=== PATIENT | female | born 1965 | race Caucasian/White ===

== ENCOUNTER 2020-12-15 10:01 | Emergency (ER) | payer SELFPAY ==
[2020-12-15] MEDS ORDERED: NA CHLORIDE 0.9% 1,000 ML ONE (11:14)
[2020-12-15] MEDS ORDERED: MORPHINE 4 MG/ML SYR ONE ×2 (11:14→12:21)
[2020-12-15] MEDS ORDERED: PROMETHAZINE INJ 25 MG/ML AMP ONE ×3 (11:15→12:21)
[2020-12-15 11:16] LABS: Urine Blood NEGATIVE (NEG); Urine Glucose NEGATIVE (NEG); Urine Protein NEGATIVE (NEG); Urine pH 7.5 (5.0-7.0)
[2020-12-15 11:29] LABS: ALT/SGPT 19 U/L (12-78); AST/SGOT 18 U/L (15-37); Albumin 3.9 g/dL (3.4-5.0); Alkaline Phosphatase 78 U/L (45-117); BUN Blood Urea Nitrogen 11 mg/dL (7-18); Bicarbonate 28 mmol/L (21-32); Bilirubin Direct < 0.1 mg/dL (0-0.2); Bilirubin Total 0.2 mg/dL (0.2-1.0); Glucose Level 133 mg/dL (74-106); Lipase 107 U/L (73-393); Potassium 3.8 mmol/L (3.5-5.1); Protein, Total 7.1 g/dL (6.4-8.2); Sodium Level 144 mmol/L (136-145)
[2020-12-15 11:31] LABS: Absolute Lymphocytes (CBC) 1.1 K/uL (0.7-4.9); Basophils % 0.3 % (0-1.3); Hematocrit 40.4 % (36.0-45.0); Lymphocytes % 10.9 % (15.3-44.8); MPV 8.2 fL (7.6-11.3); RBC Red Blood Cell Count 4.05 M/uL (3.86-4.86)
--- NOTE | 2020-12-15 11:35 | RAD REPORT ---
EXAM DESCRIPTION: CTAbdomen Pelvis W Contrast - 12/15/2020 11:14 am CLINICAL HISTORY: Abdominal pain. dysuria;Flank pain COMPARISON: No comparisons TECHNIQUE: Biphasic CT imaging of the abdomen and pelvis was performed with 100 ml non-ionic IV cont rast. All CT scans are performed using dose optimization technique as appropriate and may include automated exposure control or mA/KV adjustment according to patient size. FINDINGS: The lung bases are clear. The liver, spleen, pancreas, adrenal glands and right kidney are within normal limits. 6 mm stone is present in the proximal left ureter resulting in moderate left hydronephrosis. No bowel obstruction, free air, free fluid or abscess. Moderate stool is present throughout the colon . Sigmoid diverticulosis without diverticulitis. The appendix is normal. No evidence of significant lymphadenopathy. No suspicious bony findings. IMPRESSION: 6 mm stone at the left UPJ resulting in moderate left hydronephrosis.
[2020-12-15 11:39] LABS: Urine Bacteria NONE SEEN /HPF (<20); Urine RBC <5 /HPF (NONE SEEN)
--- NOTE | 2020-12-15 12:13 | EDPHYS ---
Physician Documentation [facility] Name: Kaitlin Del Rio Age: 55 yrs Sex: Female : 1965 Arrival Date: 12/15/2020 Time: 10:05 Bed 5 Private MD: MAVERICK Physician Kishore Maldonado HPI: 12/15 10:46 This 55 yrs old Female presents to ER via Ambulatory with complaints of Flank pm1 Pain. 10:46 The patient complains of pain in the left low back. The pain does not radiate. Onset: pm1 The symptoms/episode began/occurred yesterday. Modifying factors: The symptoms are alleviated by positioning and lying on her left side, the symptoms are aggravated by nothing. Associated signs and symptoms: Pertinent positives: dysuria, nausea, Pertinent negatives: diarrhea, fever, vomiting. Severity of pain: in the emergency department the pain is actually worse. The patient has experienced a previous episode, last year, some symptoms similar to prior kidney stone. The patient has not recently seen a physician. Nausea not improved with zofran at home. 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 - Social history:: Smoking status: Patient reports the use of cigarette tobacco products, smokes one-half pack cigarettes per day. ROS: 10:46 Constitutional: Negative for fever, chills, and weight loss, Cardiovascular: Negative pm1 for chest pain, palpitations, and edema, Respiratory: Negative for shortness of breath, cough, wheezing, and pleuritic chest pain, Abdomen/GI: Negative for abdominal pain, nausea, vomiting, diarrhea, and constipation. 10:46 MS/Extremity: Negative for injury and deformity, Skin: Negative for injury, rash, and discoloration, Neuro: Negative for headache, weakness, numbness, tingling, and seizure. 10:46 Back: Positive for flank pain, on the left, Negative for injury or acute deformity, decreased range of motion. 10:46 : Positive for urinary symptoms, flank pain, small amounts, difficulty urinating. Exam: 10:46 Constitutional: This is a well developed, well nourished patient who is awake, alert, pm1 and in no acute distress. Head/Face: Normocephalic, atraumatic. 10:46 Skin: Warm, dry with normal turgor. Normal color with no rashes, no lesions, and no evidence of cellulitis. MS/ Extremity: Pulses equal, no cyanosis. Neurovascular intact. Full, normal range of motion. 10:46 Cardiovascular: Exam negative for acute changes, Rate: normal, Rhythm: regular, Pulses: no pulse deficits are appreciated. 10:46 Respiratory: Exam negative for acute changes, respiratory distress, shortness of breath. 10:46 Abdomen/GI: Inspection: abdomen appears normal, Palpation: soft, in all quadrants, mild abdominal tenderness, in the suprapubic area. 10:46 Back: pain, that is mild, of the left low back, normal spinal alignment noted, vertebral tenderness, is not appreciated. 10:46 Neuro: Exam negative for acute changes, Orientation: is normal, Mentation: is normal, Motor: is normal, moves all fours. Vital Signs: 10:30 BP 131 / 89; Pulse 71; Resp 16; Temp 98.9; Pulse Ox 99% on R/A; Weight 58.97 kg; Height iw 5 ft. 3 in. (160.02 cm); Pain 8/10; 12:41 BP 126 / 74; Pulse 89; Resp 16; Pulse Ox 98% on R/A; Pain 0/10; iw 10:30 Body Mass Index 23.03 (58.97 kg, 160.02 cm) iw MDM: 10:36 Patient medically screened. [facility] 10:58 Data reviewed: vital signs. Data interpreted: Pulse oximetry: on room air is 99 %. pm1 Interpretation: normal. 11:45 Counseling: I had a detailed discussion with the patient and/or guardian regarding: the pm1 historical points, exam findings, and any diagnostic results supporting the discharge/admit diagnosis, lab results, radiology results, the need for outpatient follow up, for definitive care, a urologist, to return to the emergency department if symptoms worsen or persist or if there are any questions or concerns that arise at home. 12/15 10:46 Order name: Basic Metabolic Panel; Complete Time: 11:37 pm1 12/15 10:46 Order name: CBC with Diff; Complete Time: 11:37 pm1 12/15 10:46 Order name: Hepatic Function; Complete Time: 11:37 pm1 12/15 10:46 Order name: Lipase; Complete Time: 11:37 pm1 12/15 10:46 Order name: Urine Microscopic Only; Complete Time: 11:40 pm1 12/15 11:09 Order name: Urine Dipstick--Ancillary (enter results) eb 12/15 10:46 Order name: CT Abd/Pelvis - IV Contrast Only; Complete Time: 11:37 pm1 12/15 11:09 Order name: Urine Dipstick-Ancillary; Complete Time: 11:18 EDMS 12/15 11:15 Order name: CREATININE WHOLE BLOOD; Complete Time: 11:18 EDMS 12/15 10:46 Order name: IV Saline Lock; Complete Time: 11:09 pm1 12/15 10:46 Order name: Labs collected and sent; Complete Time: 11:09 pm1 12/15 10:46 Order name: Urine Dipstick-Ancillary (obtain specimen); Complete Time: 11:12 pm1 Administered Medications: 11:00 Drug: morphine 4 mg Route: IVP; Site: right antecubital; bp 11:05 Follow up: Response: No adverse reaction aa5 11:00 Drug: Phenergan 12.5 mg Route: IVP; Site: right antecubital; bp 11:05 Follow up: Response: No adverse reaction aa5 11:00 Drug: NS 0.9% 1000 ml Route: IV; Rate: 1000 ml; Site: right antecubital; bp 11:57 Follow up: IV Status: Completed infusion aa5 11:57 Drug: Flomax 0.4 mg Route: PO; aa5 11:57 Drug: Phenergan 12.5 mg Route: IVP; Site: right antecubital; aa5 11:57 Drug: morphine 4 mg Route: IVP; Site: right antecubital; aa5 Disposition: 13:39 Co-signature as Attending Physician, Kishore Maldonado MD I agree with the assessment and adriane plan of care. Disposition: 12/15/20 12:12 Discharged to Home. Impression: Calculus of ureter - Left. - Condition is Stable. - Discharge Instructions: Kidney Stones, Dietary Guidelines to Help Prevent Kidney Stones. - Prescriptions for Tylenol- Codeine #3 300-30 mg Oral Tablet - take 2 tablets by ORAL route every 4-6 hours As needed; 20 tablet. Flomax 0.4 mg Oral Capsule, Sust. Release 24 hr - take 1 capsule by ORAL route once daily 1/2 hour following the same meal each day; 10 capsule. promethazine 25 mg Oral Tablet - take 1 tablet by ORAL route every 6 hours As needed; 20 tablet. - Medication Reconciliation Form, Thank You Letter, Antibiotic Education, Prescription Opioid Use form. - Follow up: Emergency Department; When: As needed; Reason: Worsening of condition. Follow up: Private Physician; When: 2 - 3 days; Reason: Recheck today's complaints, Continuance of care, Re-evaluation by your physician. - Problem is new. - Symptoms have improved. Signatures: Dispatcher [employer] EDMS Kishore Maldonado MD MD cha Williams, Irene, RN RN iw Maris Mayen RN RN aa5 Philippe Galeana, COLTON STRAW HAT MACHINE OPERATOR pm1 Nilo Woodall RN RN bp Corrections: (The following items were deleted from the chart) 12:42 12:12 12/15/2020 12:12 Discharged to Home. Impression: Calculus of ureter - Left. iw Condition is Stable. Forms are Medication Reconciliation Form, Thank You Letter, Antibiotic Education, Prescription Opioid Use. Follow up: Emergency Department; When: As needed; Reason: Worsening of condition. Follow up: Private Physician; When: 2 - 3 days; Reason: Recheck today's complaints, Continuance of care, Re-evaluation by your physician. Problem is new. Symptoms have improved. pm1
--- NOTE | 2020-12-15 12:13 | ER ---
Nurse's Notes [facility] Name: Kaitlin Del Rio Age: 55 yrs Sex: Female : 1965 Arrival Date: 12/15/2020 Time: 10:05 Bed 5 Private MD: Diagnosis: Calculus of ureter-Left Presentation: 12/15 10:30 Chief complaint: Patient states: left flank pain since yesterday , has hx of kidney iw stones, no blood in urine , not urinating a lot , +nausea. Coronavirus screen: At this time, the client does not indicate any symptoms associated with coronavirus-19. Ebola Screen: Patient negative for fever greater than or equal to 101.5 degrees Fahrenheit, and additional compatible Ebola Virus Disease symptoms Patient denies exposure to infectious person. Patient denies travel to an Ebola-affected area in the 21 days before illness onset. No symptoms or risks identified at this time. Initial Sepsis Screen: Does the patient meet any 2 criteria? No. Patient's initial sepsis screen is negative. Does the patient have a suspected source of infection? No. Patient's initial sepsis screen is negative. Risk Assessment: Do you want to hurt yourself or someone else? Patient reports no desire to harm self or others. Onset of symptoms was December 14, 2020. 10:30 Method Of Arrival: Ambulatory iw 10:30 Acuity: MAYA 3 iw Triage Assessment: 10:35 General: Appears distressed, uncomfortable. General: Behavior is cooperative, bp appropriate for age, anxious. Pain: Complains of pain in suprapubic area and left low back. EENT: No deficits noted. Neuro: No deficits noted. Cardiovascular: No deficits noted. Respiratory: No deficits noted. GI: No signs and/or symptoms were reported involving the gastrointestinal system. : Reports pain in left flank(s). Derm: No deficits noted. Musculoskeletal: No deficits noted. 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 - Social history:: Smoking status: Patient reports the use of cigarette tobacco products, smokes one-half pack cigarettes per day. Screenin:35 Abuse screen: Denies threats or abuse. Denies injuries from another. Nutritional bp screening: No deficits noted. Tuberculosis screening: No symptoms or risk factors identified. Fall Risk None identified. Assessment: 10:35 General: SEE TRIAGE NOTE. bp Vital Signs: 10:30 BP 131 / 89; Pulse 71; Resp 16; Temp 98.9; Pulse Ox 99% on R/A; Weight 58.97 kg; Height iw 5 ft. 3 in. (160.02 cm); Pain 8/10; 12:41 BP 126 / 74; Pulse 89; Resp 16; Pulse Ox 98% on R/A; Pain 0/10; iw 10:30 Body Mass Index 23.03 (58.97 kg, 160.02 cm) iw ED Course: 10:05 Patient arrived in ED. bg2 10:31 Triage completed. iw 10:35 Patient has correct armband on for positive identification. Bed in low position. Call bp light in reach. Side rails up X2. 10:35 Arm band placed on. iw 10:36 Philippe Galeana NP is PHCP. pm1 10:36 Kishore Maldonado MD is Attending Physician. pm1 11:00 Inserted saline lock: 20 gauge in right antecubital area, using aseptic technique. bp Blood collected. 11:16 CT Abd/Pelvis - IV Contrast Only In Process Unspecified. EDMS 12:41 No provider procedures requiring assistance completed. IV discontinued, intact, iw bleeding controlled, No redness/swelling at site. Pressure dressing applied. Administered Medications: 11:00 Drug: morphine 4 mg Route: IVP; Site: right antecubital; bp 11:05 Follow up: Response: No adverse reaction aa5 11:00 Drug: Phenergan 12.5 mg Route: IVP; Site: right antecubital; bp 11:05 Follow up: Response: No adverse reaction aa5 11:00 Drug: NS 0.9% 1000 ml Route: IV; Rate: 1000 ml; Site: right antecubital; bp 11:57 Follow up: IV Status: Completed infusion aa5 11:57 Drug: Flomax 0.4 mg Route: PO; aa5 11:57 Drug: Phenergan 12.5 mg Route: IVP; Site: right antecubital; aa5 11:57 Drug: morphine 4 mg Route: IVP; Site: right antecubital; aa5 Outcome: 12:12 Discharge ordered by . pm1 12:41 Discharged to home ambulatory. iw 12:41 Condition: good 12:41 Discharge instructions given to patient, Instructed on discharge instructions, follow up and referral plans. medication usage, Demonstrated understanding of instructions, follow-up care, medications, Prescriptions given X 3. 12:42 Patient left the ED. iw Signatures: Dispatcher [employer] EDLaura Jean RN RN iw Maris Mayen, RN RN aa5 Latisha Cruz 2 Philippe Galeana, COLTON GERMINATION WORKER pm1 Nilo Woodall RN RN bp Corrections: (The following items were deleted from the chart) 15:06 10:43 Maris Mayen, RN is Primary Nurse. aa5 aa5
[2020-12-15] MEDS ORDERED: TAMSULOSIN 0.4 MG SR CAP ONE (12:21)
[2020-12-15 15:34] VITALS: BP 126/74; O2SAT 98
[2020-12-15 15:35] VITALS: TEMP 98.9
== END 2020-12-15 12:42 | disposition home or self-care (01) ==
LOC: ER 10:01
DX: N20.1 Calculus of ureter (principal); F17.210 Nicotine dependence, cigarettes, uncomplicated
CPT/HCPCS: 36415; 74177; 80048; 80076; 81003; 81015; 82565; 83690; 85025; 96361; 96374; 96375; 99284; J2550; J7030; Q9967

== ENCOUNTER 2020-12-24 09:24 | Day surgery (SDC) | payer SELFPAY ==
[2020-12-20 14:51] LABS: Protime INR 0.97
--- NOTE | 2020-12-20 15:15 | RAD REPORT ---
EXAM DESCRIPTION: Roverto Zavala (2 Views)12/20/2020 2:27 pm CLINICAL HISTORY: Preop for genitourinary surgery COMPARISON: None FINDINGS: The lungs appear clear of acute infiltrate. The heart is normal size IMPRESSION: No acute abnormalities displayed
[~2020-12-24 09:24] MED LIST: AMPICILLIN SODIUM 2 GM in NA CHLORIDE 0.9% 100 ML IVPB SCH; Gentamicin Inj 140 MG in NA CHLORIDE 0.9% 100 ML IV SCH
[2020-12-24] MEDS ORDERED: Ringers Lactate 1,000 ML IV ONE ×2 (09:59→13:34)
[2020-12-24] MEDS ORDERED: CEFAZOLIN/SWI 1gm 1 GM/10 ML SYR ONE (09:59)
[2020-12-24] MEDS ORDERED: FENTANYL CITR 100 MCG/2 ML ONE (12:14)
[2020-12-24] MEDS ORDERED: propofoL 200 MG/20 ML VIAL IV ONE (12:14)
[2020-12-24] MEDS ORDERED: MIDAZOLAM HCL 2 MG/2 ML INJ ONE (12:14)
[2020-12-24] MEDS ORDERED: LIDOCAINE 1% MPF 5 ML VIAL ONE (12:14)
[2020-12-24] MEDS ORDERED: KETOROLAC 30 MG/ML INJ ONE (12:57)
[2020-12-24] MEDS ORDERED: dexAMETHasone 10 MG/ML VIAL ONE (12:57)
[2020-12-24] MEDS ORDERED: ONDANSETRON 4 MG/2 ML VIAL ONE (13:01)
--- NOTE | 2020-12-24 13:21 | RAD REPORT ---
EXAM DESCRIPTION: RAD - Urethrocystogrphy Retrograde - 12/24/2020 1:08 pm CLINICAL HISTORY: STENT PLACEMENT COMPARISON: No comparisons FINDINGS: Total fluoro time: 22 seconds
[2020-12-24 14:06] VITALS: BP 131/70; TEMP 96.6; O2SAT 97
--- NOTE | 2020-12-24 14:25 | OP ---
Surgeon: TRACY ALMANZAR Preoperative Diagnoses: 1.Left 6 mm ureterolithiasis. 2.Left-sided hydronephrosis. 3.Acute on chronic kidney disease. 4.Meatal stenosis. Postoperative Diagnoses: 1.Left 6 mm ureterolithiasis. 2.Left-sided hydronephrosis. 3.Acute on chronic kidney disease. 4.Distal ureteral stricture. Principle Procedures: 1.Cystoscopy. 2.Left retrograde pyelogram. 3.Left ureteroscopy, laser lithotripsy, and left ureteral stent placement. Indication For Procedure: Mrs. Del Rio presented to the Urology Clinic with an obstructing 6 mm uretera l calculus that had been present since around February 2020. She never passed the stone and never sought followup surgical evaluation potentially due to lack of insurance. She had her repeat bout of renal colic associated with persistence of the stone and thus presented for evaluation. I counseled the pa tient on the risks associated with prolonged ureteral obstruction due to a stone, the potential for p ermanent renal function decline, ureteral stricture, etc. She thus presents today for definitive man agement of the left 6 mm ureteral stone. Procedure In Detail: The patient was consented in the preoperative holding area before being transfe rred to the operative suite where general anesthesia was induced. She was placed in the lithotomy po sition, padded and secured to the table appropriately. She was given ampicillin and gentamicin IV an timicrobial prophylaxis and pneumo boots were provided for DVT prophylaxis. She was placed in the li thotomy position, padded and secured to the table appropriately. Her genitalia were prepped using Hi biclens and she was draped in standard fashion. The case was then begun using a 22-Malawian rigid cyst oscope, but the scope was unable to be navigated beyond the meatus due to significant meatal stenosis . Thus, I used the obturators for the cystoscope sheath to sequentially attempt to dilate the meatus before ultimately utilizing the 21-Malawian cystoscope and its obturator to gain entry into the bladde r. The bladder was then decompressed of its urine, and was then filled with normal saline and survey ed in its entirety. There were no mucosal lesions, foreign bodies, or stones noted throughout. The ureteral orifices were orthotopic in location bilaterally. The left ureteral orifice was cannulated using the tip of a 5-Malawian ureteral access catheter. A retrograde pyelogram was then performed. Left retrograde pyelography: Using a 70:30 mixture of Omnipaque and saline, contrast was injected via the 5-Malawian ureteral access catheter and did propagate up a dilated ureter that was dilated down to the distal ureteral segment. There was a filling defect observed in the mid distal ureter consistent with that of a stone. Ther e was significant pelvocaliectasis consistent with chronic obstruction. As a result, I passed a Sens or wire via the 5-Malawian ureteral access catheter and observed a coil within the putative upper pole of the kidney. Over the Sensor wire, I then placed a dual-lumen catheter, but was only able to navig ate it into the ureteral orifice minimally. I then utilized a semi-rigid ureteroscope and pressurize d normal saline irrigation to navigate up the ureteral orifice where a point of strictured obstructio n was noted in the distal ureter. I then utilized a second [employer] guidewire and was able to create railroad tracks to navigate with gentle pressure the semi-rigid ureteroscope beyond the point of stri cture narrowing and into the mid distal ureter where the stone was visualized. I then utilized a 272 nm laser fiber with settings of 0.8 and 8 initially, ultimately changed to 0.8 and 12 in order to fr agment a very hard stone into dust about the size of the laser fiber. Once this was done, I then rem leona the ureteroscope and collected some of the stone dust for chemical analysis. I then back-loaded the cystoscope over the indwelling safety wire and passed a 6-Malawian by 24 cm double-J left ureteral stent with a coil observed fluoroscopically within the renal pelvis and 1 cystoscopically within the bladder. The bladder was then decompressed of fluid and urine, and the patient was taken out of the lithotomy position. She was then awakened from general anesthesia, transferred to a stretcher, and then transferred to the recovery room in good condition. Complications: None. Discharge Disposition: She will maintain the left ureteral stent for at least 3 weeks in order to al low hopeful repair and remodeling of the distal left ureteral stricture observed. At that point, we will plan removal of the stent in clinic cystoscopically. Subsequent followup will be determined bas ed on her recurrent stone forming history. WR/MODL Voice ID: [id number] Report ID: [id number]
== END 2020-12-24 14:18 | disposition home or self-care (01) ==
LOC: OR 09:24
PROVIDERS: ATTEND Urology
PROC: 0T778DZ Dilation of Left Ureter with Intraluminal Device, Via Natural or Artificial Opening Endoscopic (ICD-10-PCS; 2020-12-24)
PROC: 0TF78ZZ Fragmentation in Left Ureter, Via Natural or Artificial Opening Endoscopic (ICD-10-PCS; principal; 2020-12-24 11:00)
DX: N13.2 Hydronephrosis with renal and ureteral calculous obstruction (principal); R10.9 Unspecified abdominal pain; N17.9 Acute kidney failure, unspecified; N35.92 Unspecified urethral stricture, female; Z87.440 Personal history of urinary (tract) infections; Z20.822 Contact with and (suspected) exposure to COVID-19
CPT/HCPCS: 36415; 51610; 71046; 74450; 82360; 85610; 88300; 93005; J0290; J0690; J1100; J1580; J2250; J2405; J2704; J3010; J7120; U0003